=== PATIENT | male | born 1975 | race Caucasian/White ===

== ENCOUNTER 2018-01-27 16:04 | Emergency (ER) | payer OTHER ==
[~2018-01-27] VITALS: Ht 177.8 cm; Wt 89.8 kg
[2018-01-27 16:30] VITALS: BP 169/100
[2018-01-27] MEDS ORDERED: SULF1TAB24 PO (16:38)
--- NOTE | 2018-01-27 16:39 | PHYS DOC ---
Adult General Chief Complaint Chief Complaint: Skin problem HPI HPI Patient is a 42 year old male who presents with complaining of small area of redness on the skin of left knee for the last 2-3 days without pain or itching or history of injury. Patient stated warm and doesn't have any fever and history of the same problem. Patient is up-to-date with tetanus immunization. Review of Systems Review of Systems Constitutional: Denies fever or chills [] Eyes: Denies change in visual acuity, redness, or eye pain [] HENT: Denies nasal congestion or sore throat [] Respiratory: Denies cough or shortness of breath [] Cardiovascular: No additional information not addressed in HPI [] GI: Denies abdominal pain, nausea, vomiting, bloody stools or diarrhea [] : Denies dysuria or hematuria [] Musculoskeletal: Denies back pain or joint pain [] Integument: Denies rash, reports skin lesions [] Neurologic: Denies headache, focal weakness or sensory changes [] Endocrine: Denies polyuria or polydipsia [] All other systems were reviewed and found to be within normal limits, except as documented in this note. Allergies Allergies Allergies Coded Allergies Type Severity Reaction Last Updated Verified No Known Drug Allergies 01/27/18 No Physical Exam Physical Exam Constitutional: Well developed, well nourished, no acute distress, non-toxic appearance. [] HENT: Normocephalic, atraumatic. Eyes: PERRLA, EOMI, conjunctiva normal, no discharge. [] Neck: Normal range of motion, no tenderness, supple, no stridor. [] Cardiovascular:Heart rate regular rhythm, no murmur [] Lungs & Thorax: Bilateral breath sounds clear to auscultation [] Skin: Warm, dry, 2 x 2 centimeters area of erythema and mild edema in lateral side of left knee without fluctuation Back: No tenderness, no CVA tenderness. [] Extremities: No tenderness, no cyanosis, no clubbing, ROM intact, no edema. [] Neurologic: Alert and oriented X 3, normal motor function, normal sensory function, no focal deficits noted. [] Psychologic: Affect normal, judgement normal, mood normal. [] EKG EKG [] Radiology/Procedures Radiology/Procedures [] Course & Med Decision Making Course & Med Decision Making Evaluation of patient in ER showed 42-year-old male patient with area of cellulitis in left knee skin without sign of abscess. Patient ultimately taking ibuprofen and instructed to continue ibuprofen and prescription for Bactrim was given. Patient instructed to return to ER if the condition getting worse or having drainage of pus or fever and chills. Dragon Disclaimer Dragon Disclaimer This electronic medical record was generated, in whole or in part, using a voice recognition dictation system. Departure Departure: Impression: Primary Impression: Cellulitis of knee, left Disposition: HOME, SELF-CARE (at 1635) Condition: STABLE Referrals: PCP,NO (PCP) Patient Instructions: Cellulitis Additional Instructions: Apply moist warm pad on the affected area Follow-up with your primary care physician in 3-5 days Return to ER if not getting better Continue taking ibuprofen 800 mg every 8 hours Scripts Sulfamethoxazole/Trimethoprim (BACTRIM DS TABLET) 1 Each Tablet 1 TAB PO BID, #14 TAB Prov: DAVID MERCADO MD 01/27/18 DAVID MERCADO MD Jan 27, 2018 16:39
== END 2018-01-27 16:45 | disposition home or self-care (01) ==
LOC: ER 16:04
DX: L03.116 Cellulitis of left lower limb (principal)
CPT/HCPCS: 99283

== ENCOUNTER 2018-04-06 16:18 | Emergency (ER) | payer OTHER ==
[~2018-04-06] VITALS: Ht 177.8 cm; Wt 88.5 kg
[~2018-04-06 16:18] MED LIST: SULF1TAB24 PO
--- NOTE | 2018-04-06 16:54 | RAD ---
EXAM: Chest, single view. HISTORY: Cough. COMPARISON: None. FINDINGS: A frontal view the chest obtained. There is no infiltrate, pleural effusion or pneumothorax. The heart is normal in size. IMPRESSION: No acute pulmonary finding. Electronically signed by: Domenica Alvarenga MD (04/06/2018 4:50 PM) [place] [id number]
--- NOTE | 2018-04-06 17:16 | PHYS DOC ---
Past History Past Medical History: No Pertinent History Past Surgical History: No Surgical History Alcohol Use: Rarely Drug Use: None Adult General Chief Complaint Chief Complaint: COUGH HPI HPI 42-year-old male presenting the emergency department today with a cough for many weeks. She reports changing in sputum production. He denies any medical conditions. His cough is productive with yellow sputum. ROS He denies fevers or chills. He denies neck stiffness or headache. All other review of systems is negative unless otherwise noted in history of present illness. ED course: 42-year-old with cough. Chest x-ray is negative. Flu is negative. We will give the patient prednisone and azithromycin to follow-up with his doctor.The patient has been examined and was not found to have an emergency medical condition. The patient was then discharged home in stable condition to follow up with their primary care physician over the next 1-2 days. They were to return if their symptoms worsened or if they were concerned for any reason. They were also instructed to return to the emergency department if they were unable to get the recommended and appropriate follow-up. [id number] discharge instructions and return precautions were given. Patient's questions were answered to their satisfaction. Patient is comfortable with plan. Review of Systems Review of Systems SEE ABOVE. Allergies Allergies Allergies Coded Allergies Type Severity Reaction Last Updated Verified No Known Drug Allergies 01/27/18 No Physical Exam Physical Exam SEE ABOVE Constitutional: Well developed, well nourished, no acute distress, non-toxic appearance. [] HENT: Normocephalic, atraumatic, bilateral external ears normal, oropharynx moist, no oral exudates, nose normal. [] Eyes: PERRLA, EOMI, conjunctiva normal, no discharge. [] Neck: Normal range of motion, no tenderness, supple, no stridor. [] Cardiovascular:Heart rate regular rhythm, no murmur [] Lungs & Thorax: Bilateral breath sounds clear to auscultation [] Abdomen: Bowel sounds normal, soft, no tenderness, no masses, no pulsatile masses. [] Skin: Warm, dry, no erythema, no rash. [] Back: No tenderness, no CVA tenderness. [] Extremities: No tenderness, no cyanosis, no clubbing, ROM intact, no edema. [] Neurologic: Alert and oriented X 3, normal motor function, normal sensory function, no focal deficits noted. [] Psychologic: Affect normal, judgement normal, mood normal. [] Current Patient Data Vital Signs Vital Signs Date Time Temp Pulse Resp B/P (MAP) Pulse Ox O2 Delivery O2 Flow Rate FiO2 04/06/18 16:27 98.2 80 18 98 Room Air EKG EKG [] Radiology/Procedures Radiology/Procedures [] Course & Med Decision Making Course & Med Decision Making Pertinent Labs and Imaging studies reviewed. (See chart for details) [] Dragon Disclaimer Dragon Disclaimer This electronic medical record was generated, in whole or in part, using a voice recognition dictation system. Departure Departure: Impression: Primary Impression: Cough Disposition: HOME, SELF-CARE Condition: STABLE Referrals: PCPDARVIN (PCP) Patient Instructions: Cough, Adult Additional Instructions: Thank you for allowing us to participate in your care today. Return to the emergency department you have any new or worsening symptoms, or if you are concerned for any reason. Return to emergency department if you have any new or concerning symptoms including but not limited to fever, chills, nausea, vomiting, intractable pain, any new rashes, chest pain, shortness of air , uncontrolled bleeding, difficulty breathing, and/or vision loss. Follow up with your primary care physician within 1-2 days. Call your Primary Doctor tomorrow and inform them of your visit today. If you do not have a primary care provider we are happy to provide you with a list of our primary care providers contact information. This condition should be evaluated by your primary care physician and any recommended consulting services for continued management within 2 days after discharge. If at any time, you are having difficulty getting into your primary care doctor or a specialist, return to the emergency department. Scripts Azithromycin (ZITHROMAX PACKET) 1 Gm Packet 1 PACKET PO ONCE for COUGH, #1 PACKET Prov: GIGI OLMSTEAD MD 04/06/18 Prednisone (PREDNISONE) 50 Mg Tablet 1 TAB PO DAILY for COUGH, #5 TAB You received this medication in the emergency room today. You will starting your next dose tomorrow. Prov: GIGI OLMSTEAD MD 04/06/18 GIGI OLMSTEAD MD Apr 06, 2018 17:16
[2018-04-06 17:45] LABS: INFLUENZA A PATIENT NEGATIVE (NEGATIVE); INFLUENZA B PATIENT NEGATIVE (NEGATIVE)
[2018-04-06] MEDS ORDERED: PRED50TA PO (17:47)
[2018-04-06] MEDS ORDERED: AZIT1PAC PO (17:47)
[2018-04-06 18:08] VITALS: BP 132/89
== END 2018-04-06 18:09 | disposition home or self-care (01) ==
LOC: ER 16:18
DX: R05 Cough (principal); R09.3 Abnormal sputum
CPT/HCPCS: 71045; 87804; 99284